=== PATIENT | male | born 1970 | race Caucasian/White ===

== ENCOUNTER → 2021-12-11 15:35 | Outpatient (CLI) | payer BC, SELFPAY ==
--- NOTE | ~2021-12-11 | XR_ITS ---
XR lumbar spine min 4V DATE: 12/11/2021 16:01 INDICATION: Lumbago, left sciatica TECHNIQUE: AP, lateral, coned lateral lumbosacral and bilateral oblique views COMPARISON: None FINDINGS: There are 4 functional lumbar vertebra and a transitional lumbosacral vertebra. Transitiona l lumbosacral vertebra may be a source of chronic low back pain. There is mild levoscoliosis of the lower thoracic and lumbar spine. No fracture or bone destruction, spondylolysis or spondylolisthesis is noted. There is moderately severe degenerative disc disease at the interspace between the fourth functional lumbar vertebra and transitional lumbosacral vertebra. There is moderate degenerative disc disease between the second and third functional lumbar vertebrae. The sacroiliac joints appear normal. IMPRESSION: Transitional lumbosacral vertebra Moderately severe degenerative disc disease between 4 functional lumbar vertebra and transitional lum bosacral vertebra Moderate degenerative disc disease between second and third functional lumbar vertebrae Reviewed, dictated and finalized at location A. IMPRESSION: Transitional lumbosacral vertebra Moderately severe degenerative disc disease between 4 functional lumbar vertebr a and transitional lumbosacral vertebra Moderate degenerative disc disease between second and third functional lumbar v ertebrae
--- NOTE | ~2021-12-11 | XR_ITS ---
XR chest 2V DATE: 12/11/2021 16:01 INDICATION: Nicotine dependence TECHNIQUE: 2 views COMPARISON: 12/16/2009 two-view chest FINDINGS: Normal heart size. No hilar or mediastinal enlargement. No pulmonary infiltrate or consolid ation, pleural effusion or pulmonary vascular congestion or pneumothorax. IMPRESSION: No active cardiopulmonary disease Reviewed, dictated and finalized at location A.
== END ==
PROVIDERS: PCP Family Medicine; Visit Provider Family Medicine
DX: M51.36 Other intervertebral disc degeneration, lumbar region (principal); Z87.891 Personal history of nicotine dependence
CPT/HCPCS: 71046; 72110

== ENCOUNTER 2022-11-29 13:10 | Emergency (ER) | payer OTHER, SELFPAY ==
--- NOTE | ~2022-11-29 | XR_ITS ---
XR femur LT min 2V 11/29/2022 16:18 Indication: Left leg pain Procedure: 2 views left femur Comparison: No prior studies for comparison. Findings: There is osteoarthritis of the left hip with loose body lateral to the joint space. No acut e fracture, subluxation or dislocation. No focal soft tissue abnormality. No foreign bodies. Impression: 1: No acute fracture. Reviewed, dictated and finalized at location L. LEAD Impression: 1: No acute fracture.
--- NOTE | ~2022-11-29 | XR_ITS ---
XR lumbar spine 2-3V 11/29/2022 16:17 Indication: Low back pain Procedure: 3 views lumbar spine Comparison: 12/11/2021 Findings: There is disc narrowing and endplate degenerative change at the lowest disc space. There is a transitional L5 vertebra. No acute fracture or traumatic malalignment. No evidence for spondylolis thesis. There is atherosclerosis. Pedicles intact. Sacral foramen are symmetric. Impression: 1: No acute abnormality of the lumbar spine. Reviewed, dictated and finalized at location L. [employer] Impression: 1: No acute abnormality of the lumbar spine.
--- NOTE | ~2022-11-29 | XR_ITS ---
XR knee LT 3V 11/29/2022 16:17 INDICATION: Left knee pain PROCEDURE: 3 views left knee COMPARISON: No prior studies for comparison. FINDINGS: Fracture, dislocation or subluxation is not identified. No significant joint effusion. The soft tissues appear within normal limits. No foreign bodies are identified. IMPRESSION: 1: NO ACUTE BONE OR JOINT ABNORMALITY IDENTIFIED. Reviewed, dictated and finalized at location L. [place]
[2022-11-29 13:24] VITALS: BP 178/114; PULSE 97; RESP 16; TEMP 36.8; O2SAT 98
--- NOTE | 2022-11-29 14:30 | ED.BACK ---
HPI - Back Pain/Injury General Chief Complaint: Back Pain/Injury Stated Complaint: Back injury Time Seen by Provider: 11/29/22 14:25 Source: patient and family Mode of arrival: ambulatory Limitations: no limitations History of Present Illness HPI Narrative: Patient is a 52-year-old male with a history of hypertension presenting to the emergency department for evaluation of back pain and left lower extremity pain. 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 Patient states pain increased this morning and has been unimproved with ibuprofen. Patient denies fall or injury. He denies weakness or numbness. No saddle anesthesia. No difficulty with bowel or bladder function. He has been ambulatory. Of note, patient also states that he has left lower leg pain after an injury at work 1 week ago. Patient states that he got down off of his forklift and was helping to push something forward at work. Patient denies fall or injury or significant inciting pain with this motion, but states that he has had increasing pain in the left upper leg and was noted to have an x-ray done today ordered through occupational therapy at his workplace which he was told he had a femur fracture. Patient denies weakness or numbness in the left lower extremity. He does report swelling at the left knee. No redness. Related Data Home Medications Medication Instructions Recorded Confirmed fexofenadine 60 mg-pseudoephedrine 1 tablet PO . q.a.m. PRN allergy 05/23/20 06/06/22 ER 120 mg tablet,ext.release,12 hr symptoms (Ev-D 12 Hour) cannibis BYMOUTH 06/19/21 06/06/22 magnesium oxide 500 mg tablet 500 mg PO BID PRN spasm 06/06/22 06/06/22 ferrous sulfate 325 mg (65 mg 325 mg PO DAILY 07/22/22 iron) tablet,delayed release Allergies Allergy/AdvReac Type Severity Reaction Status Date / Time No Known Allergies Allergy Mild Verified 11/29/22 13:28 Review of Systems Review of Systems: CONSTITUTIONAL: Denies fever, chills, or sweats. EYES: Denies visual changes, redness, or discharge. ENT: Denies rhinorrhea, congestion, sore throat, or otalgia. CARDIOVASCULAR: Denies chest pain, palpitations, or edema. RESPIRATORY: Denies cough or dyspnea. GASTROINTESTINAL: Denies abdominal pain, nausea, vomiting, or diarrhea. GENITOURINARY: Denies dysuria or hematuria. SKIN: Denies rash or itching. MUSCULOSKELETAL: D reports back pain, reports left flank pain, denies pelvic pain NEUROLOGIC: Denies headache, numbness, or weakness. [facility] Past Medical History Medical History Acute bronchitis Acute non-recurrent maxillary sinusitis BMI 29.0-29.9,adult BMI 30.0-30.9,adult BMI 31.0-31.9,adult COVID-19 (02/14/21) Elevated liver enzymes Enzymes normal with GGT 25, AST 22, ALT 27 on 06/22/2022. Encounter for prostate cancer screening PSA 0.42 on 06/22/2022. Family history of lung cancer Chest x-ray on 12/11/2021 was negative. Iron deficiency (06/22/22) iron low at 25 with hemoglobin 14.9 on 06/22/2022. Vitamin B12 486 and folic acid 14.7. Lesion of nasal septum (~04/2022) scab left nasal septum nonhealing Leukocytosis (06/22/22) WBC slightly elevated at 12.3 on 06/22/2022. Male erectile dysfunction, unspecified decreased desire . Decrease testosterone at 176 with free testosterone 31.9 on 06/22/2022. Mixed hyperlipidemia Cholesterol 144, triglycerides 87, HDL 45 and LDL 82 on 06/22/2022. Muscle spasm Magnesium normal at 1.9 on 06/22/2022. Normal potassium 4.3. Nausea and vomiting Obesity (BMI 30.0-34.9) Personal history of tobacco use at least 1 pack daily for 20 years with patient quitting 10 years ago Polyp of colon Seborrheic dermatitis Weight loss, non-intentional Family History Family History Father Patient's father is , Onset Age: 59 Acute myocardia
[2022-11-29] MEDS: oxyCODONE/ACETAMINOPHEN (*CRX) 5-325 MG TABLET 1 TABLET PO (15:36)
[2022-11-29 16:41] VITALS: BP 159/92; PULSE 86; RESP 15; O2SAT 97
== END 2022-11-29 17:04 | disposition home or self-care (01) ==
PROVIDERS: Emergency Provider Emergency Medicine; PCP Family Medicine
DX: S39.012A Strain of muscle, fascia and tendon of lower back, initial encounter (principal); X50.0XXA Overexertion from strenuous movement or load, initial encounter; M79.605 Pain in left leg; M54.16 Radiculopathy, lumbar region; E61.1 Iron deficiency; E78.2 Mixed hyperlipidemia; E66.9 Obesity, unspecified; Z68.33 Body mass index [BMI] 33.0-33.9, adult; Z87.891 Personal history of nicotine dependence; F12.90 Cannabis use, unspecified, uncomplicated
CPT/HCPCS: 72100; 73552; 73562; 99284; A9270

== ENCOUNTER → 2023-02-01 10:14 | Outpatient (CLI) | payer OTHER, SELFPAY ==
--- NOTE | ~2023-02-01 | MR_ITS ---
EXAMINATION: MR lumbar spine wo con DATE: 02/01/2023 10:43 INDICATION: Lumbago with right-sided sciatica. TECHNIQUE: Magnetic resonance imaging (MRI) of the lumbar spine was performed without intravenous con trast. Sequences included sagittal T2-weighted FSE, sagittal T2-weighted FS FSE, sagittal T1-weighted FSE, and axial T2-weighted FSE. COMPARISON: None FINDINGS: 9 degree lumbar levocurvature. 2 mm retrolisthesis L5 on S1. Minimal likely physiologic anterior wedg ing at T12. Lumbar vertebral body heights are normal. Normal marrow signal. Mild to moderate disc he ight loss at L5-S1 and with right-sided predominance at L3-L4. Additional mild disc height loss at T1 1-T12, L1-L2, L4-L5. The conus medullaris terminates at L1-L2. There is normal signal in the caudal s yazan cord. Paravertebral soft tissues are unremarkable. The following disc levels are specifically d iscussed: T12-L1: The disc does not extend beyond the endplate margin. There is mild bilateral facet joint oste oarthritis. There is no neural foraminal stenosis. There is no central canal stenosis. L1-L2: Disc is mildly bulging. There is mild bilateral facet joint osteoarthritis. There is no neural foraminal stenosis. There is mild central canal stenosis. L2-L3: The disc does not extend beyond the endplate margin. There is mild right and mild to moderate left facet joint osteoarthritis. There is no neural foraminal stenosis. There is no central canal gabi nosis. L3-L4: Disc is mildly bulging with superimposed small right foraminal zone disc protrusion. There is moderate to severe bilateral facet joint osteoarthritis. There is mild bilateral neural foraminal gabi nosis. There is mild central canal stenosis. L4-L5: Disc is moderately bulging with annular fissure. There is mild to moderate bilateral facet charley nt osteoarthritis. There is mild bilateral neural foraminal stenosis. There is mild central canal gabi nosis. L5-S1: Disc is moderately bulging with annular fissure and central to left foraminal zone disc extrus ion with disc material extending a few millimeter caudal to the level of the superior endplate of S1. There is moderate bilateral facet joint osteoarthritis. There is mild right and moderate left neural foraminal stenosis. There is mild central canal stenosis. There is also moderate stenosis of the lef t and right lateral recesses with mass effect exerted on the traversing bilateral S1 nerve roots. IMPRESSION: 1. Mild lumbar levocurvature with moderate spondylosis. Reviewed, dictated and finalized at location B.
== END ==
PROVIDERS: PCP Family Medicine; Visit Provider Nurse Practitioner Family
DX: M54.41 Lumbago with sciatica, right side (principal); M47.896 Other spondylosis, lumbar region
CPT/HCPCS: 72148

== ENCOUNTER 2023-05-17 00:27 | Day surgery (SDC) | payer OTHER, SELFPAY ==
[2023-05-02 11:09] VITALS: BMI 33.8
[2023-05-17 07:52] VITALS: BP 142/86; PULSE 90; RESP 18; TEMP 36.2; O2SAT 100
[2023-05-17] MEDS: LACTATED RINGERS 1,000 ML 150 ML IV CONT (08:01)
--- NOTE | 2023-05-17 08:31 | WPDANESEPPF ---
Anes - Initial Pre Proc Eval Procedure: Operation Date: 05/17/23 09:15 Proposed Procedures p Colonoscopy - Geovani Montiel MD Date/Time: 05/17/23 08:31 Surgeon: Geovani Montiel MD Pre Op Diagnosis: hx colon polyps Patient Data Age: 53 Gender: M Height: 1.8 m Weight: 101.6 kg Last Vital Signs Temp 97.2 F L 05/17/23 07:52 Pulse 90 05/17/23 07:52 Resp 18 05/17/23 07:52 BP 142/86 H 05/17/23 07:52 Pulse Ox 100 05/17/23 07:52 O2 Del Method Room Air 05/17/23 07:52 Allergies Allergy/AdvReac Type Severity Reaction Status Date / Time No Known Allergies Allergy Mild Verified 05/17/23 07:51 Home Medications Medication Instructions Recorded Confirmed Type cannibis BYMOUTH 06/19/21 03/20/23 History lisinopril 40 mg tablet 40 mg PO DAILY #90 tabs 06/06/22 05/02/23 Rx magnesium oxide 500 mg tablet 500 mg PO BID PRN spasm 06/06/22 05/02/23 History cyclobenzaprine 10 mg tablet 10 mg PO TID PRN muscle spasm #60 12/11/22 05/02/23 Rx tabs Patient hx anesthesia problems: none Family hx anesthesia problems: none Results Review: All pre-operative results and documents have been reviewed as part of the pre-operative evaluation. [facility] Past Medical History Medical History (Updated 03/21/23 @ 08:20 by Alecia Ibarra) Abnormal serum iron level (03/14/23) iron level elevated at 243 on 03/14/2023. Acute bronchitis Acute low back pain with left-sided sciatica (~11/29/22) of femur x-ray was negative. Lumbar spine revealed degenerative changes and disc space narrowing at the lowest level. Acute low back pain with right-sided sciatica (11/28/22) Work injury 11/28/2022. X-ray of the lumbar spine 11/29/2022 in the ER transitional vertebrae lower lumbar spine with significant degenerative disc disease at L4 -transitional vertebrae without fracture. MRI of the lumbar spine 02/01/2023 with moderate spondylosis most severe at L5-S1 with neuroforaminal stenosis bilaterally mild central canal stenosis. Acute non-recurrent maxillary sinusitis Anxiety (~10/2022) BMI 29.0-29.9,adult BMI 30.0-30.9,adult BMI 31.0-31.9,adult Chronic depression COVID-19 (02/14/21) Elevated liver enzymes Enzymes normal with GGT 25, AST 22, ALT 27 on 06/22/2022. GGT 39, AST 39, ALT 38 on 03/14/2023. Encounter for prostate cancer screening PSA 0.42 on 06/22/2022. PSA 0.8 on 03/14/2023. Family history of lung cancer Chest x-ray on 12/11/2021 was negative. Femur fracture, left No evidence of femur fracture on x-ray 11/29/2022. Loose bodies noted. Hx of colonic polyp Insomnia (~11/27/22) Iron deficiency (06/22/22) iron low at 25 with hemoglobin 14.9 on 06/22/2022. Vitamin B12 486 and folic acid 14.7. Left knee pain Lesion of nasal septum (~04/2022) scab left nasal septum nonhealing Leukocytosis (06/22/22) WBC slightly elevated at 12.3 on 06/22/2022. Male erectile dysfunction, unspecified decreased desire . Decrease testosterone at 176 with free testosterone 31.9 on 06/22/2022. Mixed hyperlipidemia Cholesterol 144, triglycerides 87, HDL 45 and LDL 82 on 06/22/2022. total cholesterol 199, HDL 45, triglycerides 89, LDL 135 with ratio 4.4 on 03/14/2023. Muscle spasm Magnesium normal at 1.9 on 06/22/2022. Normal potassium 4.3. Nausea and vomiting (~11/19/22) Gastroenteritis Obesity (BMI 30.0-34.9) Personal history of tobacco use at least 1 pack daily for 20 years with patient quitting 10 years ago Polyp of colon Quadriceps muscle strain (11/27/22) work injury 11/27/2022 with x-ray of the left hip and femur negative for fracture with loose body lateral to the joint space in the hip On x-ray 11/29/2022. Seborrheic dermatitis Weight loss, non-intentional Family History Family History Father Patient's father is , Onset Age: 59 Acute myocardial infarction Mother Family history of lung cancer, Onset Age: 59 So
--- NOTE | 2023-05-17 08:44 | PM.HPGS ---
History of Present Illness History of Present Illness Consent: Risks, benefits, and alternatives have been discussed and questions answered. Patient agrees to proceed with procedure. Chief complaint: hx colon polyps Narrative: Jefferson Rolon is a 53 year old male with colon polyp 5 years ago Review of Systems Constitutional: Constitutional: Denies headache(s) and Denies weakness Eyes: Eyes: Denies blurry vision ENT: Reports Normal hearing present, Denies headache(s) and Denies neck pain Cardiovascular: Cardiovascular: Denies chest pain and Denies dyspnea Respiratory: Respiratory: Denies dyspnea Gastrointestinal: Gastrointestinal: Reports no additional gastrointestinal complaints Genitourinary: Genitourinary: Denies dysuria Musculoskeletal: Musculoskeletal: Denies neck pain Integumentary/Breasts: Skin/Breast: Denies dry skin Neurologic: Reports Normal hearing present, Denies headache(s) and Denies weakness Psychiatric: Psychiatric: Denies anxiety Endocrine: Endocrine: Denies change in body appearance Hematologic/Lymphatic: Hematologic/Lymphatic: Denies easy bleeding Allergic/Immunologic: Allergic/Immunologic: Denies urticaria PMF Past Medical History Medical History (Updated 03/21/23 @ 08:20 by Alecia Ibarra) Abnormal serum iron level (03/14/23) iron level elevated at 243 on 03/14/2023. Acute bronchitis Acute low back pain with left-sided sciatica (~11/29/22) of femur x-ray was negative. Lumbar spine revealed degenerative changes and disc space narrowing at the lowest level. Acute low back pain with right-sided sciatica (11/28/22) Work injury 11/28/2022. X-ray of the lumbar spine 11/29/2022 in the ER transitional vertebrae lower lumbar spine with significant degenerative disc disease at L4 -transitional vertebrae without fracture. MRI of the lumbar spine 02/01/2023 with moderate spondylosis most severe at L5-S1 with neuroforaminal stenosis bilaterally mild central canal stenosis. Acute non-recurrent maxillary sinusitis Anxiety (~10/2022) BMI 29.0-29.9,adult BMI 30.0-30.9,adult BMI 31.0-31.9,adult Chronic depression COVID-19 (02/14/21) Elevated liver enzymes Enzymes normal with GGT 25, AST 22, ALT 27 on 06/22/2022. GGT 39, AST 39, ALT 38 on 03/14/2023. Encounter for prostate cancer screening PSA 0.42 on 06/22/2022. PSA 0.8 on 03/14/2023. Family history of lung cancer Chest x-ray on 12/11/2021 was negative. Femur fracture, left No evidence of femur fracture on x-ray 11/29/2022. Loose bodies noted. Hx of colonic polyp Insomnia (~11/27/22) Iron deficiency (06/22/22) iron low at 25 with hemoglobin 14.9 on 06/22/2022. Vitamin B12 486 and folic acid 14.7. Left knee pain Lesion of nasal septum (~04/2022) scab left nasal septum nonhealing Leukocytosis (06/22/22) WBC slightly elevated at 12.3 on 06/22/2022. Male erectile dysfunction, unspecified decreased desire . Decrease testosterone at 176 with free testosterone 31.9 on 06/22/2022. Mixed hyperlipidemia Cholesterol 144, triglycerides 87, HDL 45 and LDL 82 on 06/22/2022. total cholesterol 199, HDL 45, triglycerides 89, LDL 135 with ratio 4.4 on 03/14/2023. Muscle spasm Magnesium normal at 1.9 on 06/22/2022. Normal potassium 4.3. Nausea and vomiting (~11/19/22) Gastroenteritis Obesity (BMI 30.0-34.9) Personal history of tobacco use at least 1 pack daily for 20 years with patient quitting 10 years ago Polyp of colon Quadriceps muscle strain (11/27/22) work injury 11/27/2022 with x-ray of the left hip and femur negative for fracture with loose body lateral to the joint space in the hip On x-ray 11/29/2022. Seborrheic dermatitis Weight loss, non-intentional Family History Family History Father Patient's father is , Onset Age: 59 Acute myocardial infarction Mother Family history of lung cancer, Onset Age: 59 Social History Social History (Updated
[2023-05-17 09:11] VITALS: BP 83/58; PULSE 102; RESP 22; O2SAT 100
[2023-05-17 09:21] VITALS: BP 86/48; PULSE 99; RESP 21; O2SAT 100
[2023-05-17 09:31] VITALS: BP 102/74; PULSE 83; RESP 20; O2SAT 100
== END 2023-05-17 09:40 | disposition home or self-care (01) ==
PROVIDERS: PCP Family Medicine; Visit Provider Internal Medicine Gastroenterology
PROC: 0DJD8ZZ Inspection of Lower Intestinal Tract, Via Natural or Artificial Opening Endoscopic (ICD-10-PCS; CPT 45378; principal; 2023-05-17 09:15)
DX: Z12.11 Encounter for screening for malignant neoplasm of colon (principal); D12.0 Benign neoplasm of cecum; D12.2 Benign neoplasm of ascending colon; K57.30 Diverticulosis of large intestine without perforation or abscess without bleeding; K64.8 Other hemorrhoids; G47.00 Insomnia, unspecified; F41.9 Anxiety disorder, unspecified; F32.A Depression, unspecified; E78.2 Mixed hyperlipidemia; Z87.891 Personal history of nicotine dependence; F12.90 Cannabis use, unspecified, uncomplicated; E66.9 Obesity, unspecified; Z68.31 Body mass index [BMI] 31.0-31.9, adult
CPT/HCPCS: 45385; 88305; J2704; J7120

== ENCOUNTER → 2023-07-09 08:27 | Outpatient (CLI) | payer OTHER, SELFPAY ==
--- NOTE | ~2023-07-09 | XR_ITS ---
Left Knee Technique: AP, lateral, and oblique views were obtained. Clinical History: Pain Findings: No fracture or dislocation is seen. Osseous alignment is anatomic. Joint spaces are preserv ed without degenerative or erosive change. Soft tissues are unremarkable. No joint effusion is seen. Impression: Unremarkable left knee radiographs. Reviewed, dictated and finalized at location . Impression: Unremarkable left knee radiographs.
== END ==
PROVIDERS: PCP Family Medicine; Visit Provider Nurse Practitioner Family
DX: M25.562 Pain in left knee (principal)
CPT/HCPCS: 73564

== ENCOUNTER 2024-12-18 00:17 | Day surgery (SDC) | payer OTHER, SELFPAY ==
[2024-12-14 12:03] VITALS: BMI 29.3
--- OUTSIDE RECORDS SUMMARY | 2024-12-18 00:20 | XMS_ITS | Clinical Summary ---
Author Organization [facility] Address [address] [place] [address] Care Team Providers Care Psychology Teacher Name Role Phone Sher Vega MD Primary Care Provider [phone] Source Comments [facility],non-owned Affiliates and Associated Physician Practices is amultiple site organization consisting of ambulatory clinics and hospital sitesin [place], [place], [place] and [place]. This disclosure is being madepursuant to the Care Everywhere program and may not contain all information available regarding this patient. Last updated 18.[facility] Allergies No known active allergies Medications * Be aware that medications may not be up to date on this document. Alwaysverify current medications with the patient. Medication Sig Dispensed Refills Start Date End Date Status buPROPion XL 24hr (Wellbutrin-XL) 150 MG tablet Take 1 (one) tablet by mouth once daily 4 Active irbesartan (Avapro) 300 MG tablet Take 1 (one) tablet by mouth once daily Active felbamate (Felbatol) 400 MG tablet Take 1 (one) tablet by mouth 3 times daily Active mupirocin (Bactroban) 2 % ointment Apply to affected area 2 times daily Active folic acid (Folvite) 1 MG tabletIndicatio ns:Methotrexate , local company intermodal truck driver, current use Take 1 (one) tablet by mouth once daily Reduce the potential risk of methotrexate related side effects 30 tablet 5 Active Turmeric (QC TUMERIC COMPLEX PO) Active acetaminophen CR (Tylenol Arthritis Pain) 650 MG tablet Take 1 (one) tablet by mouth every 8 hours as needed for Pain Active traMADol (Ultram) 50 MG tablet TAKE 1 TABLET BY MOUTH EVERY 6 HOURS FOR PAIN 5 Active predniSONE (Deltasone) 5 MG tabletIndicatio ns:Rheumatoid Arthritis Take 3.5 (three and one-half) tablets by mouth every morning for 7 days, THEN 3 (three) tablets every morning for 7 days, THEN 2.5 (two and one-half) tablets every morning for 7 days, THEN 2 (two) tablets every morning for 7 days, THEN 1.5 (one and one-half) tablets every morning for 7 days, THEN 1 (one) tablet every morning. Note dose reduction effective Saturday12/04/2024 to reduce by 1/2 tablet less every 7 days until reduced to 5 mg daily and further directions provided.. Reasons: Rheumatoid Arthritis. 100 tablet 1 5 01/09/20 26 Active methotrexate 2.5 MG tabletIndicatio ns:Rheumatoid Arthritis Take 8 (eight) tablets by mouth every 7 days Note dose increase effective Saturday12/04/2024 Reasons: Rheumatoid Arthritis 32 tablet 5 Active predniSONE (Deltasone) 5 MG tabletIndicatio ns:Rheumatoid Arthritis Take 3 (three) tablets to 4 (four) tablets by mouth every morning Reasons: Rheumatoid Arthritis 120 tablet 1 5 12/04/19 25 Discontinued methotrexate 2.5 MG tabletIndicatio ns:Rheumatoid Arthritis Take 4 (four) tablets by mouth every 7 days for 14 days, THEN 6 (six) tablets every 7 days for 14 days. Reasons: Rheumatoid Arthritis. 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 Begin weekly MTX MATTHEW. Methotrexate, skilled nursing, current use 10/29/2024 Assessment & Plan (10/29/2024 10:53 AM RN PSYCHIATRIC): The patient has been counseled on risks and benefits of methotrexate use including but not limited to the risk of liver toxicity, bone marrow suppression and methotrexate induced lung injury. The patient was advised to discontinue methotrexate and called this clinic immediately if any sudden cough, fevers or dyspnea on exertion develops. CBC with differential, liver function enzymes and renal/kidney function status will be routinely checked every 8-12 weeks to screen the patient for possible developing methotrexate side effects. While receiving treatment with methotrexate the patient should avoid the use of sulfonamide containing antibiotics such as trimethoprim/sulfamethoxazole also known as Bactrim due to significant and potentially severe drug interaction related side effects. Additionally, alcohol should not be consumed while using methotrexate due to an increase risk for the possible future development of liver related side effects including liver injury such as cirrhosis. Resolved Problems Problem Noted Date Diagnosed Date Resolved Date Polymyalgia rheumatica syndrome 10/08/2024 10/29/2024 Assessment & Plan (10/22/2024 9:02 AM RN PSYCHIATRIC): Noted some worsening of symptoms after prednisone reduced from 20 mg to 15 mg daily. PMR? other inflammatory arthritis (RA)? Recheck lab and determine next treatment option based upon results which could include temporary increase dose of prednisone back to 20 mg, consideration to change prednisone to methylprednisolone as a alternate steroid medication or if sed rate and CRP now normal (consistent with PMR remission) try adding duloxetine at bedtime to relieve possible component of non-inflammatory musculoskeletal pain. Assessment & Plan (10/08/2024 9:47 AM RN PSYCHIATRIC): Describes persistent in somewhat progressive symptoms characterized by shoulder and hip girdle inflammatory arthralgia predominantly worse after periods of inactivity and when awakening in the morning with the finding of an elevated sedimentation rate at 61 millimeter/hour and rapid response within 24 hours providing excellent resolution of symptoms following start of prednisone 20 mg daily 7 days ago. Symptoms, elevated sedimentation rate and rapid response following the start of systemic corticosteroid treatment is most consistent with a diagnosis of polymyalgia rheumatica. I have indicated that he likely will require at minimum of 12-18 months of prednisone treatment that will be slowly tapered over time. I have reviewed with Jefferson Alvarez potential short and long-term risks associated with the use of corticosteroid medications such as prednisone and methylprednisolone including but not limited to undesirable weight gain, insomnia, emotional lability, depression, anxiety, nervousness, increased risk to develop premature cataracts, infections including shingles, hyperlipidemia, steroid induced diabetes mellitus, bone demineralization, worsening of pre-existing osteoporosis and the rare occurrence of osteonecrosis. Discussed potential treatment options for polymyalgia rheumatica that includes the use of Kevzara (sarilumab) as an anti [place] 6 biologic tFDA approved treatment in cases that have been unresponsive to conventional treatment with systemic corticosteroid (prednisone) treatment or in patients that could benefit following a induction of remission that can allow a tapering of steroid medication more rapidly (within 3 months) to try to avoid complications with steroid treatment. I did discuss issues regarding need for routine lab monitoring to check for any developing hepatotoxicity following the start of Kevzara (sarilumab) in addition to rare hematologic problems and risks for potentially serious infection issues. Polymyalgia rheumatica causes muscular pain, stiffness and occasionally swelling, stiffness and pain in joints, predominantly involving the hips, neck and shoulders. Symptoms of pain, stiffness and swelling may be worse in the morning and can improve throughout the day with increased activity but often are constant and unremitting. This condition can occur rapidly or have a more slow onset insidious course and can often last for a year or two even when receiving appropriate treatment that requires the use of low-dose steroid medications such as prednisone. Most treatment courses with low-dose prednisone can be completed over a period of 12-18 months but occasionally relapse can developed with steroid tapering dose. Unfortunately there are certain rare cases where long-term use of low-dose steroid medications required to relieve symptoms that becomes evident after recurrence of symptomatology and relapse occurs when attempting steroid tapering or after completing steroid treatment. Some patients do been diagnosed with polymyalgia rheumatica may also gone to develop giant cell arteritis/temporal arteritis, which is a much more serious condition and causes an inflammatory change in arteries and can lead to complications of irreversible vision loss, arterial aneurysms and stroke complications. It is imperative that the patient should report to the resistor coater or primary care provider if any symptoms of persistent and relatively new onset headaches, jaw pain with chewing or localized tenderness along the temporal region of the scalp on either side develops. It is quite important because a delay in appropriate treatment often needing much higher dosing of steroid medication can potentially lead to blindness. Therefore it is strongly encouraged to reinforce the importance to report any possible concerns that 1 might have regarding vision change including blurring vision or seeing double vision after having been diagnosed with polymyalgia rheumatica. Additionally, it is extremely important for the patient to maintain good compliance with prescribed medications as directed for the treatment of polymyalgia rheumatica. Encounters Date Type Department Care Team Description 12/03/2024 8:20 AM RN PSYCHIATRIC Office Visit [facility] Rheumatology [address] [place] [address], [address] [place] [phone] Wes Gomez DO 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 (HCC) (Primary Dx); Methotrexate, local company intermodal truck driver, current use 11/27/[address], [address] [place] [phone] Wes Gomez DO MEDICATION REFILL 10/29/2024 10:20 AM RN PSYCHIATRIC Office Visit [address], [address] [place] [phone] Wes Gomez DO 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 (HCC) (Primary Dx); Methotrexate, local company intermodal truck driver, current use 10/23/[address], [address] [place] [phone] Wes Gomez DO LABS ONLY 10/22/2024 8:40 AM RN PSYCHIATRIC Office Visit [address], [address] [place] [phone] Wes Gomez DO Polymyalgia rheumatica syndrome (Primary Dx) 10/08/2024 8:00 AM RN PSYCHIATRIC Office Visit [address], [address] [place] [phone] Wes Gomez DO Polymyalgia rheumatica syndrome (Primary Dx) 10/02/[address], [address] [place] [phone] Group, [facility] Medical Referral from Last 3 Months Social History Tobacco Use Types Packs/Day Years Used Date Smoking Tobacco: Never Assessed PHQ-2 Answer Date Recorded Patient Health Questionnaire-2 Score 0 12/03/2024 Sex and Gender Information Value Date Recorded Sex Assigned at Not on file Gender Identity Not on file Sexual Orientation Not on file Last Filed Vital Signs Vital Sign Reading Time Taken Comments Blood Pressure 132/80 12/03/2024 8:22 AM RN PSYCHIATRIC Pulse 91 12/03/2024 8:22 AM RN PSYCHIATRIC Temperature 36.1 C (97 F) 12/03/2024 8:22 AM RN PSYCHIATRIC Respiratory Rate 16 12/03/2024 8:22 AM RN PSYCHIATRIC Oxygen Saturation 100% 12/03/2024 8:22 AM RN PSYCHIATRIC Inhaled Oxygen Concentration - - Weight 93.9 kg (207 lb) 12/03/2024 8:22 AM RN PSYCHIATRIC Height 180.3 cm (5' 11 ) 10/08/2024 8:08 AM RN PSYCHIATRIC Body Mass Index 28.87 10/08/2024 8:08 AM RN PSYCHIATRIC Plan of Treatment Upcoming Encounters Date Type Department Care Team (Late st Contact Info) Description 01/14/2025 8:20 AM CDT Office Visit [facility] - Rheumatology [address], [address] [place] [address] Wes Gomez DO [address] [place] [address] Health Maintenance Due Date Last Done Comments COLOGUARD (AGES 45-75) - COL ON CA SCREENING 1968 COLON MONITORING 1968 COLONOSCOPY - COLON CA SCREENING 1968 CT COLONOGRAPHY - COLON CA SCREENING 1968 Colorectal Cancer Screening 1968 FIT - COLON CA SCREENING 1968 FLEX SIG - COLON CA SCREENING 1968 LIPID TESTING 1968 HIV SCREENING 02/13/1983 DTAP/TDAP/TD VACCINES (1 - Tdap) 02/13/1987 HEPATITIS B VACCINE (1 of 3 - 19+ 3-dose series) 02/13/1987 PNEUMOCOCCAL VACCINE 50+ (1 of 1 - PCV) 02/13/2018 ZOSTER VACCINE (1 of 2) 02/13/2018 COVID-19 VACCINE (2023-2 5 season) 2024 INFLUENZA VACCINE (#1) 2024 SCREENING FOR DIABETES 12/04/2027 , 10/22/2024 DEPRESSION SCREENING Completed 10/08/2024 HEPATITIS C SCREENING Completed 10/22/2024 , 10/22/2024 HIB VACCINE Aged Out No longer eligi ble based on patient's age to complete this topic HPV VACCINE Aged Out No longer eligi ble based on patient's age to complete this topic MENINGOCOCCAL (Group B) VACCINE SHARED DECISION-MAKING Aged Out No longer eligible based on patient's age to complete this topic MENINGOCOCCAL GROUPS A/C/Y/W VACCINE Aged Out No longer eligible b ased on patient's age to complete this topic Procedures Procedure Name Priority Date/Time Associated Diagnosis Comments C-REACTIVE PROTEIN Routine 12/03/2024 9: 06 AM RN PSYCHIATRIC 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 (HCC) ERYTHROCYTE SEDIMENTATION RATE Routine 12/03/2024 9:06 AM RN PSYCHIATRIC 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 (HCC) COMPREHENSIVE METABOLIC PANEL Routine 12/03/2024 9:06 AM RN PSYCHIATRIC Methotrexate, skilled nursing, current use CBC W AUTO DIFFERENTIAL Routine 12/03/2024 9:06 AM RN PSYCHIATRIC Methotrexate, local company intermodal truck driver, current use REF LAB-SPECIMEN STATUS REPORT Routine 10/22/2024 9:17 AM RN PSYCHIATRIC HEPATITIS B SURFACE ANTIGEN W RFLX CONFIRMATION Routine 10/22/2024 9:17 AM RN PSYCHIATRIC HEPATITIS C ANTIBODY W RFLX PCR Routine 10/22/2024 9:17 AM RN PSYCHIATRIC HEPATITIS B SURFACE ANTIGEN W RFLX CONFIRMATION Routine 10/22/2024 9:17 AM RN PSYCHIATRIC HEPATITIS C ANTIBODY W RFLX PCR Routine 10/22/2024 9:17 AM RN PSYCHIATRIC COMPREHENSIVE METABOLIC PANEL Routine 10/22/2024 9:17 AM RN PSYCHIATRIC Polymyalgia rheumatica syndrome CBC W AUTO DIFFERENTIAL Routine 10/22/2024 9:17 AM RN PSYCHIATRIC Polymyalgia rheumatica syndrome C-REACTIVE PROTEIN Routine 10/22/2024 9: 15 AM RN PSYCHIATRIC Polymyalgia rheumatica syndrome ERYTHROCYTE SEDIMENTATION RATE Routine 10/22/2024 9:15 AM RN PSYCHIATRIC Polymyalgia rheumatica syndrome LAB RESULTS ORDER Routine 10/02/2024 8:3 9 AM RN PSYCHIATRIC from Last 3 Months Results * (ABNORMAL) C-REACTIVE PROTEIN (CRP) (12/03/2024 9:06 AM RN PSYCHIATRIC) Only the most recent of2 resultswithin the time period is included. C-Reactive Protein 2.80(H) <=0.50 mg/dL [facility] ACCOUNT BILL Blood BLOOD SPECIMEN / Unknown 12/03/2024 9:06 AM RN PSYCHIATRIC 12/03/2024 Narrative [facility] ACCOUNT BILL - 12/03/2024 5:09 PM RN PSYCHIATRIC Performed at: [address] [place] [id number] Surface Hydrologist: [address], Phone: [phone] Wes Gomez DO LAB - CHEMISTRY DANIELLE BOYD [facility] ACCOUNT BILL [address] [place] [address] * (ABNORMAL) SED RATE AUTO (ESR) (12/03/2024 9:06 AM RN PSYCHIATRIC) Only the most recent of2 resultswithin the time period is included. Erythrocyte Sedimentation Rate Westergren 23(H) 0 - 20 MM/HR [facility] ACCOUNT BILL Blood BLOOD SPECIMEN / Unknown 12/03/2024 9:06 AM RN PSYCHIATRIC 12/03/2024 Narrative [facility] ACCOUNT BILL - 12/03/2024 5:09 PM RN PSYCHIATRIC Performed at: [address] [place] [address] [place] [address], [place], [place] [id number] Surface Hydrologist: Blair [address], Phone: [phone] Wes Gomez DO LAB - HEMATOLOGY ORD ERABLES [facility] ACCOUNT BILL [address] [place] [address] * (ABNORMAL) CBC WITH DIFFERENTIAL (12/03/2024 9:06 AM RN PSYCHIATRIC) Only the most recent of2 resultswithin the time period is included. WBC 15.9(H) 4.0 - 10.7 x10E9/L [facility] ACCOUNT BILL RBC 4.70 4.30 - 5.80 x10E12/L [facility] ACCOUNT BILL Hemoglobin 12.5(L) 13.3 - 17.5 g/dL [facility] ACCOUNT BILL Hematocrit 40.7 38.7 - 51.1 % [facility] ACCOUNT BILL MCV 86.6 80.0 - 98.0 fL [facility] ACCOUNT BILL MCH 26.6(L) 26.7 - 33.6 pg [facility] ACCOUNT BILL MCHC 30.7(L) 31.7 - 36.3 g/dL [facility] ACCOUNT BILL RDW 15.6(H) 11.3 - 14.8 % [facility] ACCOUNT BILL Platelet Count 396 150 - 420 x10E9/L [facility] ACCOUNT BILL Comment:MPV (CS) 8.8 fL 7.8- 11.4 Granulocytes % 84.4(H) 41.0 - 74.0 % [facility] ACCOUNT BILL Lymphocytes % 6.5(L) 17.0 - 47.0 % [facility] ACCOUNT BILL Monocytes % 6.8 3.0 - 11.0 % [facility] ACCOUNT BILL Eosinophils % 0.8 0.0 - 7.0 % [facility] ACCOUNT BILL Basophils % 0.4 0.0 - 1.6 % [facility] ACCOUNT BILL Granulocytes Absolute 13.45(H) 1.60 - 7.50 x10E9/L [facility] ACCOUNT BILL Lymphocytes Absolute 1.03 1.00 - 4.40 x10E9/L [facility] ACCOUNT BILL Monocytes Absolute 1.09(H) 0.15 - 1.00 x10E9/L [facility] ACCOUNT BILL Eosinophils Absolute 0.12 0.00 - 0.60 x10E9/L [facility] ACCOUNT BILL Basophils Absolute 0.06 0.00 - 0.13 x10E9/L [facility] ACCOUNT BILL Immature Granulocytes 1.1(H) 0.0 - 1.0 % [facility] ACCOUNT BILL Blood BLOOD SPECIMEN / Unknown 12/03/2024 9:06 AM RN PSYCHIATRIC 12/03/2024 Narrative [facility] ACCOUNT BILL - 12/03/2024 5:09 PM RN PSYCHIATRIC Performed at: [address] [place] [id number] Surface Hydrologist: Blair [address], Phone: [phone] Wes Gomez DO LAB - HEMATOLOGY ORD ERABLES [facility] ACCOUNT BILL [address] [place] [address] * (ABNORMAL) COMPREHENSIVE METABOLIC PANEL (12/03/2024 9:06 AM RN PSYCHIATRIC) Only the most recent of2 resultswithin the time period is included. Glucose 100(H) 70 - 99 mg/dL [facility] ACCOUNT BILL BUN 19 7 - 26 mg/dL [facility] ACCOUNT BILL Creatinine 0.67(L) 0.72 - 1.25 mg/dL [facility] ACCOUNT BILL eGFR by CKD-EPI >90 >=90 mL/min/1.7 3 m2 [facility] ACCOUNT BILL Sodium 137 136 - 145 mmol/L [facility] ACCOUNT BILL Potassium 4.4 3.5 - 5.1 mmol/L [facility] ACCOUNT BILL Chloride 102 98 - 107 mmol/L [facility] ACCOUNT BILL CO2 27 22 - 29 mmol/L [facility] ACCOUNT BILL Calcium 9.2 8.4 - 10.4 mg/dL [facility] ACCOUNT BILL Protein Total 7.4 6.4 - 8.3 gm/dL [facility] ACCOUNT BILL Albumin 3.7 3.4 - 5.0 gm/dL [facility] ACCOUNT BILL Bilirubin Total 0.2 0.2 - 1.2 mg/dL [facility] ACCOUNT BILL Alkaline Phosphatase 44 40 - 150 U/L [facility] ACCOUNT BILL AST 23 5 - 34 U/L [facility] ACCOUNT BILL ALT 23 0 - 55 U/L [facility] ACCOUNT BILL Blood BLOOD SPECIMEN / Unknown 12/03/2024 9:06 AM RN PSYCHIATRIC 12/03/2024 Narrative [facility] ACCOUNT BILL - 12/03/2024 5:09 PM RN PSYCHIATRIC Performed at: [address] [place] [address] [place] [id number] Surface Hydrologist: Blair Smith [address], Phone: [phone] Wes Gomez DO LAB - CHEMISTRY DANIELLE ADRIANAOUMAR Performing Organization Address City/[facility]/ZIP Co de Phone Number [facility] ACCOUNT BILL [address] [place] [address] * HEPATITIS C ANTIBODY W RFLX PCR (10/22/2024 9:17 AM RN PSYCHIATRIC) Only the most recent of2 resultswithin the time period is included. Hepatitis C Antibody Non Reactive Non Reactive [facility] ACCOUNT BILL Comment: Performed at: - [facility] [id number] Surface Hydrologist: Jorge Ruth PhD, Phone: [phone] Interpretation Comment [facility] ACCOUNT BILL Comment: Not infected with HCV unless early or acute infection is suspected (which may be delayed in an immunocompromised individual), or other evidence exists to indicate HCV infection. 10/22/2024 9:17 AM RN PSYCHIATRIC 10/23/2024 Narrative [facility] ACCOUNT BILL - 10/26/2024 9:07 AM RN PSYCHIATRIC Performed at: - [facility] [id number] Surface Hydrologist: Jorge Ruth PhD, Phone: [phone] Specimen Comment: A duplicate report has been generated due to demographic updates. Wes Gomez DO LAB - CHEMISTRY DANIELLE ADRIANAOUMAR Performing Organization Address [facility]/ZIP Co de Phone Number [facility] ACCOUNT BILL [address] [place] [address] * REF LAB-SPECIMEN STATUS REPORT (10/22/2024 9:17 AM RN PSYCHIATRIC) Specimen Status Report Comment [facility] ACCOUNT BILL Comment: Written Authorization Written Authorization Written Authorization Received. Authorization received from FABBY MCDANIEL RN 10-26-2024 Logged by Echo Jimenez 10/22/2024 9:17 AM RN PSYCHIATRIC 10/22/2024 Narrative [facility] ACCOUNT BILL - 10/26/2024 10:07 AM RN PSYCHIATRIC Performed at: [facility] [id number] Surface Hydrologist: Jorge Ruth PhD, Phone: [phone] Wes Gomez DO LAB - CHEMISTRY DANIELLE BOYD Performing Organization Address [facility] de Phone Number [facility] ACCOUNT BILL [address] [place] [address] * HEPATITIS B SURFACE ANTIGEN W RFLX CONFIRMATION (10/22/2024 9:17 AM RN PSYCHIATRIC) Only the most recent of2 resultswithin the time period is included. Hepatitis B Virus Surface Antigen Negative Negative [facility] ACCOUNT BILL 10/22/2024 9:17 AM RN PSYCHIATRIC 10/23/2024 Narrative [facility] ACCOUNT BILL - 10/26/2024 9:07 AM RN PSYCHIATRIC Performed at: - [facility] [id number] Surface Hydrologist: Jorge Ruth PhD, Phone: [phone] Specimen Comment: A duplicate report has been generated due to demographic updates. Wes Gomez DO LAB - CHEMISTRY DANIELLE BOYD Performing Organization Address [facility] Co de Phone Number [facility] ACCOUNT BILL [address] [place] [address] * LAB RESULTS ORDER (10/02/2024 8:39 AM RN PSYCHIATRIC) Scanned Document LAB - THERAPEUTIC DR LANE MONITORING ORDERABLES from Last 3 Months Care Teams Psychology Teacher Relationship Specialty Start Date End Date Sher Vega MD [address] [place] [address] PCP - General Family Medicine 10/02/24
[2024-12-18 12:00] VITALS: BP 137/81; PULSE 78; RESP 18; TEMP 36.1; O2SAT 98; BMI 28.3
[2024-12-18] MEDS: LACTATED RINGERS 1,000 ML 150 ML IV CONT (12:08)
--- NOTE | 2024-12-18 12:15 | WPDANESEPPF ---
Anes - Initial Pre Proc Eval Procedure: Operation Date: 12/18/24 13:00 Proposed Procedures p Esophagogastroduodenoscopy - Geovani Montiel MD Date/Time: 12/18/24 12:15 Surgeon: Geovani Montiel MD Pre Op Diagnosis: iron deficiency, abnormal level of blood mineral Patient Data Age: 54 Gender: M Height: 1.8 m Weight: 92 kg Last Vital Signs Temp 36.1 C L 12/18/24 12:00 Pulse 78 12/18/24 12:00 Resp 18 12/18/24 12:00 BP 137/81 12/18/24 12:00 Pulse Ox 98 12/18/24 12:00 O2 Del Method Room Air 12/18/24 12:00 Allergies Allergy/AdvReac Type Severity Reaction Status Date / Time No Known Allergies Allergy Mild Verified 12/18/24 11:57 Home Medications ?Medication ?Instructions ?Recorded ?Confirmed ?Type cannibis BYMOUTH 06/19/21 11/04/24 History bupropion HCl 150 mg 24 hr tablet, 150 mg PO QAM #90 tabs 04/07/24 12/18/24 Rx extended release (Wellbutrin XL) omeprazole 40 mg capsule,delayed 40 mg PO DAILY laryngopharyngeal 05/26/24 12/18/24 Rx release reflux #30 caps ferrous sulfate 325 mg (65 mg 325 mg PO DAILY 09/19/24 12/18/24 History iron) tablet,delayed release irbesartan 300 mg tablet 300 mg PO DAILY #90 tabs 09/21/24 12/18/24 Rx folic acid 1 mg tablet 1 mg PO DAILY 11/04/24 12/18/24 History prednisone 20 mg tablet 15 mg PO DAILY 11/04/24 12/18/24 History tramadol 50 mg tablet 50 mg PO Q6H PRN pain #120 tabs 11/04/24 12/14/24 Rx methotrexate sodium 2.5 mg tablet 15 mg PO WEEKLY 12/04/24 12/14/24 History Patient hx anesthesia problems: none Family hx anesthesia problems: none Results Review: All pre-operative results and documents have been reviewed as part of the pre-operative evaluation. [facility] Past Medical History Medical History Rheumatoid arthritis CCP elevated at 45, CRP 44 with ESR 61 on 10/02/2024. ESR 111, rheumatoid factor less than 10, DON negative 09/09/2024. Elevated erythrocyte sedimentation rate (09/09/24) level elevated at 111 on 09/09/2024. Arthritis Elevated ESR at 111 with RF less than 10, DON negative on 09/09/2024. Chronic low back pain with sciatica BMI 28.0-28.9,adult Overweight (BMI 25.0-29.9) BMI 33.0-33.9,adult Hx of colonic polyp Abnormal serum iron level (03/14/23) iron level elevated at 243 on 03/14/2023. Iron low at 21 with 8% saturation and ferritin elevated at 663 on 09/09/2024. Left knee pain Anxiety (~10/2022) Insomnia (~11/27/22) Quadriceps muscle strain (11/27/22) work injury 11/27/2022 with x-ray of the left hip and femur negative for fracture with loose body lateral to the joint space in the hip On x-ray 11/29/2022. Acute low back pain with right-sided sciatica (11/28/22) Work injury 11/28/2022. X-ray of the lumbar spine 11/29/2022 in the ER transitional vertebrae lower lumbar spine with significant degenerative disc disease at L4 -transitional vertebrae without fracture. MRI of the lumbar spine 02/01/2023 with moderate spondylosis most severe at L5-S1 with neuroforaminal stenosis bilaterally mild central canal stenosis. Acute low back pain with left-sided sciatica (~11/29/22) of femur x-ray was negative. Lumbar spine revealed degenerative changes and disc space narrowing at the lowest level. Femur fracture, left No evidence of femur fracture on x-ray 11/29/2022. Loose bodies noted. Nausea and vomiting (~11/19/22) Gastroenteritis Leukocytosis (06/22/22) WBC slightly elevated at 12.3 on 06/22/2022. WBC normal at 9.2 with platelets 588 on 09/09/2024. Iron deficiency (06/22/22) iron low at 25 with hemoglobin 14.9 on 06/22/2022. Vitamin B12 486 and folic acid 14.7. iron low at 21 with 8% saturation and ferritin elevated at 663 with hemoglobin low at 12.0 on 09/09/2024. Iron 19 with 7% saturation with ferritin elevated at 685 with hemoglobin 11.9 on 10/02/2024. Male erectile dysfunction, unspecified decreased desire . Decrease testosterone at 176 with free testosterone 31.9 on 06/22/2022. Total testosterone low at 250 with free testosterone low at 3.2 on 11/04/2023. BMI 31.0-31.9,adult Muscle spasm Magnesium normal at 1.9 on 06/22/2022. Normal potassium 4.3. Lesion of nasal septum (~04/2022) scab left nasal septum nonhealing BMI 30.0-30.9,adult Obesity (BMI 30.0-34.9) Seborrheic dermatitis Family history of lung cancer Chest x-ray on 12/11/2021 was negative. Personal history of tobacco use at least 1 pack daily for 20 years with patient quitting 10 years ago COVID-19 (02/14/21) Weight loss, non-intentional BMI 29.0-29.9,adult Polyp of colon (~06/10/09) Colon polyp around 2018. 2 small polyps , tubular adenomas, on colonoscopy 05/17/2023 with recheck in 5 years. Encounter for prostate cancer screening PSA 0.42 on 06/22/2022. PSA 0.8 on 03/14/2023. PSA 1.3 on 09/09/2024. Mixed hyperlipidemia Cholesterol 144, triglycerides 87, HDL 45 and LDL 82 on 06/22/2022. total cholesterol 199, HDL 45, triglycerides 89, LDL 135 with ratio 4.4 on 03/14/2023. Cholesterol 152, triglycerides 71, HDL 42, LDL 96 on 09/09/2024. Elevated liver enzymes Enzymes normal with GGT 25, AST 22, ALT 27 on 06/22/2022. GGT 39, AST 39, ALT 38 on 03/14/2023. GGT 33, AST 30, ALT 21 on 09/09/2024. Acute bronchitis Acute non-recurrent maxillary sinusitis Chronic depression Family History Family History Father Patient's father is , Onset Age: 59 Acute myocardial infarction Mother Family history of lung cancer, Onset Age: 59 Social History Social History Years smoked: 20 Smoking status: Current every day smoker Tobacco type: cigarettes Alcohol intake: current Alcohol use details: Rarely Substance use: current Substance use type: marijuana Other substance usage details: 2x/week Lack of Transportation: No Lack of Food: Never True Current Housing: I Have Housing Concerned About Future Housing: No Difficulty Paying Gas/Electric Bills: No Difficulty Paying for Meds: No Currently Unemployed: No Education: High School Diploma/GED Difficulty w/ Childcare or Family Care: No Living arrangements: with family Spiritual care concerns: No Anes - Eval Final PreProcedure Day of Procedure 12/18/24 12:15 Patient weight: overweight Heart: regular rate and rhythm Lungs: decreased breath sounds Airway: Mallampati scale class II Neurological: alert and oriented Last oral intake: >/= 8 hours ASA classification: III Emergent: no Anesthetic plan: proceed Anesthesia type and monitoring: general GIVS and standard monitoring Results Review: All pre-operative results and documents have been reviewed as part of the pre-operative evaluation. Informed Consent: The patient's anesthetic plan and its attendant risks and benefits were discussed with the patient/family/POA. Questions were solicited and answers provided to the satisfaction of the patient/family/POA.
--- NOTE | 2024-12-18 12:17 | PM.HPGS ---
History of Present Illness History of Present Illness Consent: Risks, benefits, and alternatives have been discussed and questions answered. Patient agrees to proceed with procedure. Chief complaint: iron deficiency, abnormal level of blood mineral Narrative: Jefferson Rolon is a 54 year old male with mellisa, no overt gib, had colonoscopy 2022 Review of Systems Review of Systems: All systems reviewed & are unremarkable except as noted in HPI and below PMFSH Past Medical History Medical History Rheumatoid arthritis CCP elevated at 45, CRP 44 with ESR 61 on 10/02/2024. ESR 111, rheumatoid factor less than 10, DON negative 09/09/2024. Elevated erythrocyte sedimentation rate (09/09/24) level elevated at 111 on 09/09/2024. Arthritis Elevated ESR at 111 with RF less than 10, DON negative on 09/09/2024. Chronic low back pain with sciatica BMI 28.0-28.9,adult Overweight (BMI 25.0-29.9) BMI 33.0-33.9,adult Hx of colonic polyp Abnormal serum iron level (03/14/23) iron level elevated at 243 on 03/14/2023. Iron low at 21 with 8% saturation and ferritin elevated at 663 on 09/09/2024. Left knee pain Anxiety (~10/2022) Insomnia (~11/27/22) Quadriceps muscle strain (11/27/22) work injury 11/27/2022 with x-ray of the left hip and femur negative for fracture with loose body lateral to the joint space in the hip On x-ray 11/29/2022. Acute low back pain with right-sided sciatica (11/28/22) Work injury 11/28/2022. X-ray of the lumbar spine 11/29/2022 in the ER transitional vertebrae lower lumbar spine with significant degenerative disc disease at L4 -transitional vertebrae without fracture. MRI of the lumbar spine 02/01/2023 with moderate spondylosis most severe at L5-S1 with neuroforaminal stenosis bilaterally mild central canal stenosis. Acute low back pain with left-sided sciatica (~11/29/22) of femur x-ray was negative. Lumbar spine revealed degenerative changes and disc space narrowing at the lowest level. Femur fracture, left No evidence of femur fracture on x-ray 11/29/2022. Loose bodies noted. Nausea and vomiting (~11/19/22) Gastroenteritis Leukocytosis (06/22/22) WBC slightly elevated at 12.3 on 06/22/2022. WBC normal at 9.2 with platelets 588 on 09/09/2024. Iron deficiency (06/22/22) iron low at 25 with hemoglobin 14.9 on 06/22/2022. Vitamin B12 486 and folic acid 14.7. iron low at 21 with 8% saturation and ferritin elevated at 663 with hemoglobin low at 12.0 on 09/09/2024. Iron 19 with 7% saturation with ferritin elevated at 685 with hemoglobin 11.9 on 10/02/2024. Male erectile dysfunction, unspecified decreased desire . Decrease testosterone at 176 with free testosterone 31.9 on 06/22/2022. Total testosterone low at 250 with free testosterone low at 3.2 on 11/04/2023. BMI 31.0-31.9,adult Muscle spasm Magnesium normal at 1.9 on 06/22/2022. Normal potassium 4.3. Lesion of nasal septum (~04/2022) scab left nasal septum nonhealing BMI 30.0-30.9,adult Obesity (BMI 30.0-34.9) Seborrheic dermatitis Family history of lung cancer Chest x-ray on 12/11/2021 was negative. Personal history of tobacco use at least 1 pack daily for 20 years with patient quitting 10 years ago COVID-19 (02/14/21) Weight loss, non-intentional BMI 29.0-29.9,adult Polyp of colon (~06/10/09) Colon polyp around 2018. 2 small polyps , tubular adenomas, on colonoscopy 05/17/2023 with recheck in 5 years. Encounter for prostate cancer screening PSA 0.42 on 06/22/2022. PSA 0.8 on 03/14/2023. PSA 1.3 on 09/09/2024. Mixed hyperlipidemia Cholesterol 144, triglycerides 87, HDL 45 and LDL 82 on 06/22/2022. total cholesterol 199, HDL 45, triglycerides 89, LDL 135 with ratio 4.4 on 03/14/2023. Cholesterol 152, triglycerides 71, HDL 42, LDL 96 on 09/09/2024. Elevated liver enzymes Enzymes normal with GGT 25, AST 22, ALT 27 on 06/22/2022. GGT 39, AST 39, ALT 38 on 03/14/2023. GGT 33, AST 30, ALT 21 on 09/09/2024. Acute bronchitis Acute non-recurrent maxillary sinusitis Chronic depression Family History Family History Father Patient's father is , Onset Age: 59 Acute myocardial infarction Mother Family history of lung cancer, Onset Age: 59 Social History Social History Years smoked: 20 Smoking status: Current every day smoker Tobacco type: cigarettes Alcohol intake: current Alcohol use details: Rarely Substance use: current Substance use type: marijuana Other substance usage details: 2x/week Lack of Transportation: No Lack of Food: Never True Current Housing: I Have Housing Concerned About Future Housing: No Difficulty Paying Gas/Electric Bills: No Difficulty Paying for Meds: No Currently Unemployed: No Education: High School Diploma/GED Difficulty w/ Childcare or Family Care: No Living arrangements: with family Spiritual care concerns: No Meds Home Medications and Allergies Home Medications ?Medication ?Instructions ?Recorded ?Confirmed ?Type zachary BYMOUTH 06/19/21 11/04/24 History bupropion HCl 150 mg 24 hr tablet, 150 mg PO QAM #90 tabs 04/07/24 12/18/24 Rx extended release (Wellbutrin XL) omeprazole 40 mg capsule,delayed 40 mg PO DAILY laryngopharyngeal 05/26/24 12/18/24 Rx release reflux #30 caps ferrous sulfate 325 mg (65 mg 325 mg PO DAILY 09/19/24 12/18/24 History iron) tablet,delayed release irbesartan 300 mg tablet 300 mg PO DAILY #90 tabs 09/21/24 12/18/24 Rx folic acid 1 mg tablet 1 mg PO DAILY 11/04/24 12/18/24 History prednisone 20 mg tablet 15 mg PO DAILY 11/04/24 12/18/24 History tramadol 50 mg tablet 50 mg PO Q6H PRN pain #120 tabs 11/04/24 12/14/24 Rx methotrexate sodium 2.5 mg tablet 15 mg PO WEEKLY 12/04/24 12/14/24 History Allergies Allergy/AdvReac Type Severity Reaction Status Date / Time No Known Allergies Allergy Mild Verified 12/18/24 11:57 Vital Signs Vital Signs - 24 hr 12/18/24 12:00 Temperature 97 F L Pulse Rate 78 Respiratory Rate 18 Blood Pressure 137/81 Pulse Oximetry 98 Oxygen Delivery Room Air Exam Const: General: comfortable and no acute distress HENMT: Face/Nose/Sinus: Normal nares present Eyes: General: appearance normal, both eyes and all related structures Neck: Neck: no JVD Resp: Auscultation: clear to auscultation bilaterally Cardio: Rate: regular rate Rhythm: regular rhythm GI: Inspection: non-distended GI Palp: Yes Soft to palpation Skin: General skin exam: normal color Neuro: Speech: normal speech Extrem: General: normal to inspection Psych: Mental Status: mental status grossly normal Assessment and Plan Assessment and plan (1) Iron deficiency: Onset Date: 06/22/22 Code(s): E61.1 - Iron deficiency Status: Acute Assessment and Plan: egd with bx
[2024-12-18] MEDS: BENZOCAINE (*SP) 60 ML SPRAY CAN (HURRICAINE) 1 SPRAY MUCOUS MEM (12:23)
[2024-12-18 12:31] VITALS: BP 121/72; PULSE 91; RESP 22; O2SAT 100
[2024-12-18 12:41] VITALS: BP 114/69; PULSE 70; RESP 31; O2SAT 100
[2024-12-18 12:51] VITALS: BP 115/72; PULSE 65; RESP 20; O2SAT 99
== END 2024-12-18 12:55 | disposition home or self-care (01) ==
PROVIDERS: PCP Family Medicine; Referring Provider Family Medicine; Visit Provider Internal Medicine Gastroenterology
PROC: 0DJ08ZZ Inspection of Upper Intestinal Tract, Via Natural or Artificial Opening Endoscopic (ICD-10-PCS; CPT 43239; principal; 2024-12-18 13:00)
DX: D50.9 Iron deficiency anemia, unspecified (principal); K29.50 Unspecified chronic gastritis without bleeding; F17.210 Nicotine dependence, cigarettes, uncomplicated; F12.90 Cannabis use, unspecified, uncomplicated
CPT/HCPCS: 43239; 88305; J2003; J2704; J7120